=== PATIENT | female | born 1975 | race Two or more races ===

== ENCOUNTER 2022-11-10 23:08 | Emergency (ER) | payer MEDICAID ==
[~2022-11-10] VITALS: Ht 154.9 cm; Wt 81.8 kg
[2022-11-10 23:51] VITALS: BP 142/78
[2022-11-11 00:21] LABS: Urine Bacteria FEW /hpf (None Seen); Urine Blood Negative /uL (Negative); Urine Specific Gravity 1.003 (1.001-1.035); Urine WBC 18 /hpf (0 - 5); Urine WBC Clumps PRESENT /hpf (None Seen)
[2022-11-11 00:31] LABS: Basophils # (auto) 0 10 ^3/uL (0-0.2); Eosinophils # (auto) 0.1 10 ^3/uL (0-0.8); Hemoglobin 11.6 g/dL (12.2-16.2); Lymphocytes # (auto) 3.1 10 ^3/uL (0.4-5.4); Monocytes # (auto) 0.5 10 ^3/uL (0-1.3); Neutrophils # (auto) 3.8 10 ^3/uL (1.6-8.6); Nucleated Red Blood Cells % 0.1 %; Red Cell Distribution Width 15.2 % (11.8-14.3); White Blood Cell 7.6 10^3/uL (4.4-10.8)
[2022-11-11 00:33] LABS: Basophils % (auto) 0.6 % (0.0-2.0); Eosinophils % (auto) 1.8 % (0.0-7.0); Hematocrit 35.7 % (36.0-46.0); Lymphocytes % (auto) 40.4 % (10.0-50.0); Mean Corpuscular Hemoglobin 25.2 pg (28.0-32.0); Mean Corpuscular Hgb Conc. 32.4 g/dL (32.0-36.0); Mean Corpuscular Volume 77.6 fL (80.0-100.0); Neutrophils % (auto) 50.2 % (37.0-80.0)
[2022-11-11 00:50] LABS: Albumin 3.6 g/dL (3.4-5.0); Calcium 9.1 mg/dL (8.5-10.1)
[2022-11-11 00:53] LABS: Bilirubin, Total 0.2 mg/dL (0.2-1.0); Total Protein 8.4 g/dL (6.4-8.2)
== END 2022-11-11 03:41 | disposition left against medical advice (07) ==
LOC: ER 23:08
DX: E03.9 Hypothyroidism, unspecified (principal)
CPT/HCPCS: 36415; 80053; 81001; 81025; 84436; 84443; 85025; 93005